=== PATIENT | female | born 1975 | race Caucasian/White ===

== ENCOUNTER 2020-02-16 12:28 | Inpatient (IN) | payer MEDICAID ==
[~2020-02-16] VITALS: Ht 172.7 cm; Wt 65.8 kg
--- NOTE | 2020-02-16 12:33 | NUR ---
MIKE [id number] From "Had procedure done yesterday woke up this am abdominal pain, chills/shakes/felt hot", to ER bed 9, hooked to monitor, changed to hosp gown, warm blanket provided, patient aao X 4, breathing even and unlabored. Patient states "I had hyssteroscopy yesterday to check my fallopian tubes, I was fine yesterday". awaiting MD collins.
--- NOTE | 2020-02-16 12:34 | NUR ---
Dr Valentin at [facility]
[2020-02-16] MEDS ORDERED: ONDANSETRON HCL/PF 4 MG/2 ML VIAL ONE ×2 (12:59→17:06)
[2020-02-16] MEDS ORDERED: METRONIDAZOLE 500MG/ NS 100ML 100 ML IV ONE ×2 (12:59→13:00)
[2020-02-16 13:00] LABS: BASOPHILS % (AUTO) 0.1 % (0.0-2.0); HEMATOCRIT 48 % (33-45); HEMOGLOBIN 15.4 g/dL (11.5-14.8); LYMPHOCYTES # (AUTO) 0.2 /CMM (0.8-4.8); LYMPHOCYTES % (AUTO) 1.2 % (20.0-44.0); MEAN CORPUSCULAR HGB CONC 32 g/dl (31.0-36.0); MEAN CORPUSCULAR VOLUME 95 fL (82-100); MONOCYTES # (AUTO) 0.9 /CMM (0.1-1.30); MONOCYTES % (AUTO) 5.1 % (2.0-12.0); NEUTROPHILS # (AUTO) 15.7 /CMM (1.8-8.9); NEUTROPHILS % (AUTO) 93.6 % (43.0-81.0); PLATELET COUNT (AUTO) 251 /CMM (150-450); RED BLOOD CELL COUNT(AUTO) 5.02 MIL/uL (4.0-5.2); WHITE BLOOD COUNT (AUTO) 16.7 K/uL (4.3-11.0)
[2020-02-16] MEDS ORDERED: MORPHINE SULFATE INJ 2 MG/ML DISP.SYRIN IV ONE ×2 (13:00→17:30)
[2020-02-16] MEDS ORDERED: PIPERACILLIN /TAZOBACTAM 3.375 G VIAL IV ONE (13:00)
[2020-02-16] MEDS ORDERED: MORPHINE SULFATE INJ 4 MG/ML DISP.SYRIN ONE ×2 (13:00→17:06)
[2020-02-16] MEDS ORDERED: ONDANSETRON HCL/PF 4 MG/2 ML VIAL IVP ONE (13:00)
[2020-02-16] MEDS ORDERED: IV NS 0.9% 1,000 ML BAG IV ONE (13:00)
[2020-02-16] MEDS ORDERED: PIPERACILLIN /TAZOBACTAM 3.375 G in IV D5W 50 ML IV ONE (13:00)
[2020-02-16 13:07] LABS: CALCIUM, SERUM 9.1 mg/dL (8.5-10.1); CARBON DIOXIDE 26 mmol/L (21-32); CHLORIDE 103 mmol/L (98-107); CREATININE 1.1 mg/dL (0.6-1.3); GLUCOSE 117 mg/dL (74-106); POTASSIUM 3.8 mmol/L (3.5-5.1); SODIUM SERUM 138 mmol/L (136-145); UREA NITROGEN, BLOOD 15 mg/dL (7-18)
[2020-02-16] MEDS ORDERED: IOHEXOL-300 100 ML VIAL IV ONE (13:17)
[2020-02-16] MEDS ORDERED: IV NS 0.9% 250 ML IV ONE (13:17)
[2020-02-16 13:19] LABS: ALANINE AMINOTRANSFERASE 24 U/L (12-78); ALBUMIN 3.6 g/dL (3.4-5.0); ALKALINE PHOSPHATASE 47 U/L (46-116); ASPARTATE AMINOTRANSFERASE 39 U/L (15-37); BILIRUBIN,DIRECT 0.3 mg/dL (0.0-0.2); BILIRUBIN,TOTAL 1.1 mg/dL (0.2-1.0); LIPASE 68 U/L (73-393); TOTAL PROTEIN, SERUM 6.9 g/dL (6.4-8.2)
--- NOTE | 2020-02-16 13:51 | NUR ---
patient not able to provide urine sample, made aware
--- NOTE | 2020-02-16 13:55 | NUR ---
PATIENT STATES "THERE IS 0% CHANCE I'M , THEY DID A TEST YESTERDAY AND IT'S NEGATIVE". LMP 02/05/2020
--- NOTE | 2020-02-16 13:56 | NUR ---
CALLED DR [facility]. ---ON THE PHONE WITH DR GTZ.
[2020-02-16] MEDS ORDERED: [UNRECOGNIZED DRUG - REMARK] PO (13:57)
--- NOTE | 2020-02-16 13:59 | NUR ---
CALLED DR JOHN HERNANDEZ. LEFT A VOICEMAIL.
--- NOTE | 2020-02-16 14:17 | NUR ---
DR BENTON CALLED BACK AND SPOKE WITH DR GTZ. REQUESTS PATIENT TO BE ACCEPTED AT [facility].
--- NOTE | 2020-02-16 14:23 | NUR ---
CALLED [facility] [place] LINE @ SPOKE WITH GERBER FAXED OVER FACESHEET AND CLINICALS @
--- NOTE | 2020-02-16 15:28 | NUR ---
URINE COLLECTED AND SENT TO LAB
[2020-02-16 16:05] LABS: APPEARANCE,URINE CLEAR (CLEAR); BILIRUBIN,URINE NEGATIVE (NEGATIVE); BLOOD, URINE NEGATIVE Ery/uL (NEGATIVE); COLOR,URINE YELLOW (YELLOW); KETONES,URINE NEGATIVE (NEGATIVE); LEUKOCYTE ESTERASE ,URINE NEGATIVE (NEGATIVE); NITRITE, URINE NEGATIVE (NEGATIVE); PROTEIN,URINE NEGATIVE (NEGATIVE); UGLUCOSE NEGATIVE (NEGATIVE); UROBILINOGEN,URINE 0.2 EU/dL (0.2)
--- NOTE | 2020-02-16 16:16 | NUR ---
GERBER FROM [facility] [place] LINE IS STATING PER DR LOPEZ.. PATIENT IS DOES NOT REQUIRE A DIRECT ADMISSION AND CAN BE SENT THROUGH THE EMERGENCY DEPARTMENT.
--- NOTE | 2020-02-16 16:30 | NUR ---
CALLED [facility] SPOKE WITH [employer]- KARYN AGUIAR- -[facility]ONT[facility] LINE WILL CALL US WITH AN UPDATE.
--- NOTE | 2020-02-16 16:50 | NUR ---
CALLED [employer] ATHLETIC EQUIPMENT MANAGER WAS PAGED.
[2020-02-16] MEDS ORDERED: ONDANSETRON HCL/PF 4 MG/2 ML VIAL IV ONE (17:30)
[2020-02-16] MEDS ORDERED: ACETAMINOPHEN 325 MG TABLET PO PRN (18:00)
[2020-02-16] MEDS ORDERED: MAGNESIUM HYDROXIDE 30 ML UDC PO PRN (18:00)
[2020-02-16] MEDS ORDERED: Z GUARD REMEDY 2 OZ OINT TP PRN (18:00)
[2020-02-16] MEDS ORDERED: ZOLPIDEM TARTRATE 5 MG TABLET PO PRN (18:00)
[2020-02-16] MEDS ORDERED: ONDANSETRON HCL/PF 4 MG/2 ML VIAL IVP PRN (18:00)
[2020-02-16] MEDS ORDERED: MAG HYDROX/AL HYDROX/SIMETH 30 ML UDC PO PRN (18:00)
--- NOTE | 2020-02-16 18:42 | NUR ---
REPORT GIVEN TO KIRSTEN ANDERSON OF [facility] UNIT
[2020-02-16 19:10] VITALS: BP 96/52
--- NOTE | 2020-02-16 19:10 | NUR ---
RN MS ADMISSION NOTES RECEIVED PATIENT FROM ER VIA GURNEY SAFELY TRANSFERRED TO BED, AWAKE ALERT AND ORIENTED X4, RESPIRATIONS EVEN AND UNLABORED WITH EQUAL RISE AND FALL OF CHEST, UPON ASSESSMENT NOTED ABDOMEN DISTENDED TENDER. OFFERED PAIN MEDICATION PT STATES " NOT AT THIS TIME" NO FACIAL GRIMACING PRESENT AT THIS TIME, IV SITE TO RIGHT AC#18G INTACT AND PATENT, NO REDNESS NO INFILTRATION PRESENT, PATIENT DENIES ANY SKIN ISSUES. BELONGINGS LIST DONE AND SIGNED BY PATIENT, WOULD LIKE TO KEEP PURSE AT BEDSIDE, ORIENTED TO STAFF AND CALL LIGHT AND KEPT WITHIN REACH, SAFETY PRECAUTIONS IN PLACE, LOW BED AND LOCKED, DISCUSSED PLAN OF CARE ALL NEEDS ATTENDED AT THIS TIME, WILL CONTINUE TO MONITOR.
[2020-02-16 20:00] VITALS: BP 96/52
[2020-02-16] MEDS: PIPERACILLIN /TAZOBACTAM 3.375 G in IV D5W 100 ML IV SCH (20:32)
[2020-02-16] MEDS: IV 1/2NS 1000 ML 1,000 ML IV PRN (20:34)
[2020-02-16] MEDS: MORPHINE SULFATE INJ 2 MG/ML DISP.SYRIN IV PRN (21:32)
--- NOTE | 2020-02-16 21:32 | NUR ---
rn ms notes patient complained of pain to abdomen area states 10/10, noted facial grimacing and moaning, states sharp achy pain, offered morphine patient agreed also offered zofran for nausea. given as ordered, will continue to monitor for effectiveness, vs wnl.
[2020-02-17] MEDS: MORPHINE SULFATE INJ 2 MG/ML DISP.SYRIN IV PRN ×2 (01:37→09:05)
--- NOTE | 2020-02-17 01:37 | NUR ---
rn ms notes patient complained of pain to abdomen area states 10/10, noted facial grimacing and crying, states sharp achy pain, offered morphine patient agreed ,given as ordered lights dimmed, will continue to monitor for effectiveness, vs wnl 117/83, hr 109, 02 sat 98% respirations 20, reassured patient her vital signs are within normal limits. will continue to monitor for effectiveness.
[2020-02-17] MEDS: PIPERACILLIN /TAZOBACTAM 3.375 G in IV D5W 100 ML IV SCH ×2 (03:58→12:12)
--- NOTE | 2020-02-17 06:24 | NUR ---
RN MS CLOSING NOTES PATIENT IN BED, AWAKE ALERT AND ORIENTED X4, RESPIRATIONS EVEN AND UNLABORED WITH EQUAL RISE AND FALL OF CHEST, PATIENT IS AMBULATORY WITH ASSIST BRP, ABLE TO VOID,ABDOMEN DISTENDED TENDER UPON MOVEMENT. OFFERED PAIN MEDICATION THROUGHOUT SHIFT AND EFFECTIVE. NO FACIAL GRIMACING PRESENT AT THIS TIME, IV SITE TO RIGHT AC#18G INTACT AND PATENT, NO REDNESS NO INFILTRATION PRESENT,IVF RUNNING ORDERED, ANTIBIOTICS GIVEN ORDERED. PATIENT DENIES ANY SKIN ISSUES. CALL LIGHT KEPT WITHIN REACH, SAFETY PRECAUTIONS IN PLACE, LOW BED AND LOCKED, ALL NEEDS ATTENDED AT THIS TIME, WILL CONTINUE TO MONITOR AND ENDORSE TO NEXT SHIFT.
[2020-02-17 06:59] LABS: BASOPHILS % (AUTO) 0.2 % (0.0-2.0); LYMPHOCYTES # (AUTO) 0.6 /CMM (0.8-4.8); MEAN CORPUSCULAR HGB CONC 32 g/dl (31.0-36.0); MONOCYTES # (AUTO) 0.6 /CMM (0.1-1.30)
[2020-02-17 07:11] LABS: EOSINOPHILS % (AUTO) 0.1 % (0.0-6.0); HEMATOCRIT 40 % (33-45); LYMPHOCYTES % (AUTO) 3.6 % (20.0-44.0); MEAN CORPUSCULAR VOLUME 95 fL (82-100); MONOCYTES % (AUTO) 3.5 % (2.0-12.0); NEUTROPHILS # (AUTO) 14.9 /CMM (1.8-8.9); NEUTROPHILS % (AUTO) 92.6 % (43.0-81.0); PLATELET COUNT (AUTO) 201 /CMM (150-450); RED BLOOD CELL COUNT(AUTO) 4.25 MIL/uL (4.0-5.2)
[2020-02-17 07:26] LABS: CALCIUM, SERUM 7.9 mg/dL (8.5-10.1); CREATININE 1.1 mg/dL (0.6-1.3); MAGNESIUM 2.1 mg/dL (1.8-2.4); PHOSPHORUS 2.4 mg/dL (2.5-4.9); POTASSIUM 3.5 mmol/L (3.5-5.1)
[2020-02-17 07:32] LABS: THYROID STIMULATING HORMONE 2.105 uIU/mL (0.358-3.74)
[2020-02-17] MEDS: PANTOPRAZOLE 40 MG TABLET.DR PO SCH (07:53)
[2020-02-17 08:00] VITALS: BP 95/52
--- NOTE | 2020-02-17 08:00 | NUR ---
MS RN NOTES PATIENT ALERT, ORIENTED X3 IN BED RESTING. NO SOB OR ACUTE DISTRESS NOTED. PERIPHERAL IV INTACT PATENT. SAFETY PRECAUTIONS IN PLACE WILL CONTINUE TO MONITOR.
--- NOTE | 2020-02-17 11:00 | NUR ---
MS RN NOTES PATIENT TRANSFERRED TO ROOM 207-2 IN STABLE CONDITION. BEDSIDE REPORT GIVEN TO MONICA.
--- NOTE | 2020-02-17 11:40 | NUR ---
MS RN NOTES RECEIVED REPORT FROM MONICA HOWARD. PATIENT IN STABLE CONDITION. ALERT AND ORIENTED X4. ON ROOM AIR WITH NO SIGNS OF RESPIRATORY DISTRESS AT THIS TIME. WILL CONTINUE TO MONITOR PATIENT.
--- NOTE | 2020-02-17 12:41 | NUR ---
[employer] M[employer] Filter Fabricator attempted to meet with this patient to go over the advanced care directive. Patient was not in the room when SW attempted to meet. SW will try again.
[2020-02-17] MEDS ORDERED: K PHOS NEUTRAL 250 MG TABLET PO ONE (13:00)
[2020-02-17] MEDS ORDERED: IBUPROFEN 400 MG TABLET PO PRN ×2 (16:00→16:30)
[2020-02-17] MEDS ORDERED: IBUPROFEN 600 MG TABLET PO PRN (16:00)
[2020-02-17] MEDS ORDERED: ONDANSETRON HCL/PF 4 MG/2 ML VIAL IV PRN (16:30)
[2020-02-17] MEDS: GENTAMICIN 450 MG in IV D5W 100 ML IV SCH (17:59)
[2020-02-17] MEDS ORDERED: ONDANSETRON HCL/PF 4 MG/2 ML VIAL IVP PRN (18:00)
[2020-02-17] MEDS ORDERED: CLINDAMYCIN 900 MG in IV NS 0.9% 50 ML IV SCH (18:00)
[2020-02-17] MEDS: CLINDAMYCIN 900 MG in IV NS 0.9% 50 ML IV SCH (19:27)
--- NOTE | 2020-02-17 19:32 | NUR ---
MS RN NOTES PATIENT IN BED RESTING COMFORTABLY. ALERT AND ORIENTED X4. PATIENT ON ROOM AIR WITH NO SIGNS OF SOB, RESPIRATORY DISTRESS, AND NO SOB NOTED. PATIENT IV ACCESS INTACT AND PATENT. MET ALL OF PATIENT'S NEEDS. PATIENT PRESENTS WITH MILD PAIN, APPLIED HEAT PACK TO ABDOMINAL AREA. PROVIDED COMFORT MEASURES TO PATIENT. SAFETY PRECAUTIONS IMPLEMENTED WITH BED LOCKED, BED IN THE LOWEST POSITION, BILATERAL SIDE RAILS UP AND CALL LIGHT WITHIN EASY REACH OF THE PATIENT. WILL ENDORSE PLAN OF CARE TO UPCOMING NURSE.
--- NOTE | 2020-02-17 19:50 | NUR ---
MS RN OPENING NOTES RECEIVED PATIENT RESTING IN BED COMFORTABLY; A/OX4; BREATHING EVEN AND UNLABORED; TOLERATING ROOM AIR WELL; NO SOB NOTED; R AC #18 SL INTACT AND PATENT, FLUSHING WELL; NO S/S OF REDNESS OR INFILTRATION NOTED; PATIENT ABLE TO MAKE NEEDS KNOWN; SAFETY PRECAUTIONS IMPLEMENTED; BED LOCKED IN LOW POSITION; SIDE RAILSX2; CALL LIGHT WITHIN EASY REACH; WILL CONT TO MONITOR
[2020-02-17 20:00] VITALS: BP 103/60
[2020-02-17] MEDS: AMPICILLIN 2 GM in IV NS 0.9% 100 ML IV SCH (20:28)
[2020-02-17 20:47] VITALS: BP 103/60
[2020-02-17] MEDS ORDERED: GENTAMICIN 80 MG in IV D5W 50 ML IV SCH (21:00)
[2020-02-17] MEDS: oxyCODONE/APAP (5/325 MG) 1 UDTAB TABLET PO PRN (21:21)
--- NOTE | 2020-02-17 21:21 | NUR ---
MS RN NOTES PATIENT COMPLAINING OF ABDOMINAL PAIN 03/15; PATIENT ALSO REPORTED SHE HAS BACK PAIN WELL; PATIENT REQUESTING PERCOCET; PATIENT VITALS STABLE, A/OX4, ABLE TO MAKE NEEDS KNOWN; WILL CONT TO MONITOR
[2020-02-18] MEDS: CLINDAMYCIN 900 MG in IV NS 0.9% 50 ML IV SCH ×3 (03:23→20:07)
--- NOTE | 2020-02-18 04:05 | NUR ---
MS RN NOTES PATIENT REQUESTING TO MOVE TO SEPARATE ROOM; PATIENT WOULD LIKE TO HAVE HER OWN ROOM SINCE HER CURRENT ROOMMATE IS LOUD/NOISY; PATIENT REPORTED SHE HAD DIFFICULTY GETTING SUFFICIENT REST D/T HER NOISY ROOMMATE; PATIENT MOVED TO BED 200; CALL LIGHT WITHIN REACH; WILL CONT TO MONITOR;
[2020-02-18] MEDS: AMPICILLIN 2 GM in IV NS 0.9% 100 ML IV SCH ×3 (04:18→21:04)
[2020-02-18] MEDS: IV 1/2NS 1000 ML 1,000 ML IV PRN (05:37)
--- NOTE | 2020-02-18 06:25 | NUR ---
MS RN CLOSING NOTES PATIENT RESTING IN BED COMFORTABLY; A/OX4; BREATHING EVEN AND UNLABORED; PATIENT TOLERATING ROOM AIR WELL; NO SOB NOTED; R AC # 18 INFUSING 1/2 NS @ 75ML/HR; PATIENT TOLERATING IVF WELL; NO S/S OF REDNESS OR INFILTRATION NOTED; PATIENT REPORTS TO BE FEELING MUCH BETTER, COMPARED TO YESTERDAY; PATIENT ABLE TO MAKE NEEDS KNOWN; ALL NEEDS RENDERED; SAFETY PRECAUTIONS IMPLEMENTED; BED LOCKED IN LOW POSITION; SIDE RAILSX2; CALL LIGHT WITHIN EASY REACH; WILL ENDORSE MICHAEL TO ONCOMING NURSE
[2020-02-18 06:54] LABS: BASOPHILS % (AUTO) 0.6 % (0.0-2.0); EOSINOPHILS % (AUTO) 2.3 % (0.0-6.0); HEMATOCRIT 41 % (33-45); HEMOGLOBIN 13.4 g/dL (11.5-14.8); LYMPHOCYTES # (AUTO) 1.1 /CMM (0.8-4.8); LYMPHOCYTES % (AUTO) 16.4 % (20.0-44.0); MEAN CORPUSCULAR HGB CONC 33 g/dl (31.0-36.0); MEAN CORPUSCULAR VOLUME 95 fL (82-100); MONOCYTES # (AUTO) 0.4 /CMM (0.1-1.30); MONOCYTES % (AUTO) 6.2 % (2.0-12.0); NEUTROPHILS % (AUTO) 74.5 % (43.0-81.0); PLATELET COUNT (AUTO) 193 /CMM (150-450); WHITE BLOOD COUNT (AUTO) 6.8 K/uL (4.3-11.0)
[2020-02-18 06:57] LABS: CALCIUM, SERUM 7.8 mg/dL (8.5-10.1); CREATININE 1.1 mg/dL (0.6-1.3); MAGNESIUM 1.9 mg/dL (1.8-2.4); PHOSPHORUS 3.1 mg/dL (2.5-4.9); POTASSIUM 3.5 mmol/L (3.5-5.1)
[2020-02-18] MEDS: PANTOPRAZOLE 40 MG TABLET.DR PO SCH (07:34)
[2020-02-18 08:00] VITALS: BP 98/59
--- NOTE | 2020-02-18 09:12 | NUR ---
MS/RN OPENING NOTES RECEIVED PATIENT IN BED SLEEPING EASILY AROUSE BY NAME AND SLIGHT TOUCH. NO COMPLAINED OF PAIN AT THIS TIME. NO APPARENT RESPIRATORY DISTRESS NOTED. WILL CONTINUE TO MONITOR
[2020-02-18] MEDS: HYDROCODONE/APAP 5/325MG 1 EACH TABLET PO PRN (12:21)
[2020-02-18 16:00] VITALS: BP 121/78
[2020-02-18] MEDS: GENTAMICIN 450 MG in IV D5W 100 ML IV SCH (18:26)
--- NOTE | 2020-02-18 18:51 | NUR ---
MS/RN NOTES DR. DEMARCO ORDER SOLU MEDROL 100 MG IV ONE TIME DOSE NOTED AND CARRIED OUT.
--- NOTE | 2020-02-18 18:52 | NUR ---
MS/RN CLOSING NOTES PATIENT IS ON BED. PATIENT IS ALERT AND ORIENTED X4. PATIENT DENIES PAIN AT THIS TIME. PATIENT IN NO APPARENT RESPIRATORY DISTRESS NOTED. IN ROOM AIR SATURATION AT 99%. IV ACCESS AT RIGHT AC # 18 WITH IV FLUID OF 1/2 NS 1L AT 75 ML/HR ON AND INFUSING WELL. SEEN AND EXAMINED BY MD WITH ORDERS MADE AND CARRIED OUT. ALL DUE MEDICATION WAS GIVEN. SAFETY PRECAUTION WAS IN PLACED. BED IN LOWEST POSITION AND LOCKED. SIDE RAILS UP X 2. CALL LIGHT WITHIN REACH. WILL ENDORSED TO GUIDE DOG INSTRUCTOR FOR MICHAEL.
--- NOTE | 2020-02-18 19:30 | NUR ---
PATIENT IN BED TALKING ON THE PHONE. A/ORX4. SMILING SPEECH CLEAR BED ALARM ON REVIEWED THE CALL LIGHT WITH THE PATIENT REMINDING HER TO CALL TO GET OUT OF THE BED FOR SAFETY.
[2020-02-18 19:58] VITALS: BP 108/73
[2020-02-18 20:11] VITALS: BP 108/73
[2020-02-18] MEDS ORDERED: methylPREDNISolone SOD SUCC 125 MG/2ML VIAL IV ONE (21:00)
[2020-02-18] MEDS: oxyCODONE/APAP (5/325 MG) 1 UDTAB TABLET PO PRN (22:59)
[2020-02-19] MEDS: IV 1/2NS 1000 ML 1,000 ML IV PRN (01:55)
[2020-02-19] MEDS: CLINDAMYCIN 900 MG in IV NS 0.9% 50 ML IV SCH ×2 (04:20→12:32)
--- NOTE | 2020-02-19 04:48 | NUR ---
uneventful night. slept 9 hours of this night. c/c/o 1 x of abd pain and medicated with percocet at 2300 and the medication was effective. md colindres was here to see pt at 1900 last night ordered solumederol ..given as ordered. ambu;ates to the bathroom with standby assist strong on her legs
[2020-02-19] MEDS: AMPICILLIN 2 GM in IV NS 0.9% 100 ML IV SCH ×2 (05:02→12:22)
[2020-02-19 06:37] LABS: BASOPHILS % (AUTO) 0.1 % (0.0-2.0); HEMATOCRIT 44 % (33-45); HEMOGLOBIN 14.4 g/dL (11.5-14.8); LYMPHOCYTES # (AUTO) 0.3 /CMM (0.8-4.8); LYMPHOCYTES % (AUTO) 9.1 % (20.0-44.0); MEAN CORPUSCULAR HGB CONC 33 g/dl (31.0-36.0); MEAN CORPUSCULAR VOLUME 95 fL (82-100); MONOCYTES # (AUTO) 0.1 /CMM (0.1-1.30); MONOCYTES % (AUTO) 2.4 % (2.0-12.0); NEUTROPHILS # (AUTO) 3.1 /CMM (1.8-8.9); NEUTROPHILS % (AUTO) 88.4 % (43.0-81.0); PLATELET COUNT (AUTO) 234 /CMM (150-450); RED BLOOD CELL COUNT(AUTO) 4.61 MIL/uL (4.0-5.2); WHITE BLOOD COUNT (AUTO) 3.5 K/uL (4.3-11.0)
[2020-02-19 07:21] LABS: CALCIUM, SERUM 8.5 mg/dL (8.5-10.1); MAGNESIUM 1.8 mg/dL (1.8-2.4); PHOSPHORUS 4.6 mg/dL (2.5-4.9)
[2020-02-19] MEDS: PANTOPRAZOLE 40 MG TABLET.DR PO SCH (08:05)
--- NOTE | 2020-02-19 08:09 | NUR ---
MS/RN OPENING NOTES RECEIVED PATIENT ON BED AWAKE, ALERT AND ORIENTED X4. PATIENT IN NO RESPIRATORY RESPIRATORY DISTRESS NOTED. PATIENT NO COMPLAINED OF PAIN AT THIS TIME. WILL CONTINUE TO MONITOR.
[2020-02-19 08:34] VITALS: BP 110/71
[2020-02-19 09:26] LABS: BAND % (MANUAL) 3 % (0.0-5.0); LYMPHOCYTES % (MANUAL) 13 % (16-48); NEUTROPHILS % (MANUAL) 84 (42-76)
[2020-02-19] MEDS: HYDROCODONE/APAP 5/325MG 1 EACH TABLET PO PRN ×2 (12:21→16:07)
--- NOTE | 2020-02-19 19:32 | NUR ---
MS/RN NOTES PATIENT IS ALERT AND ORIENTED X4. PATIENT DENIES PAIN AT THIS TIME. IN ROOM AIR AND SATURATION IS AT 100%. RESPIRATION REGULAR AND UNLABORED. THE PATIENT IN NO APPARENT RESPIRATORY DISTRESS NOTED. SEEN AND EXAMINED BY MD WITH ORDERS MADE AND CARRIED OUT. PATIENT DISCHARGE AT 1635. PATIENT WAS GIVEN DISCHARGED INSTRUCTIONS AND PATIENT VERBALIZED UNDERSTANDING. THE PATIENT LEFT THE HOSPITAL IN STABLE CONDITION, ACCOMPANIED BY ULKIRA HOUSEMATE FRIEND, VIA PRIVATE CAR.
== END 2020-02-19 16:36 | disposition home or self-care (01) | DRG 720 ==
LOC: ER 12:31 → MED 18:48 → MEDSG2 02-17 11:25 → MED 02-19 05:48
PROVIDERS: ADMIT Student in an Organized Health Care Education/Training Program; ATTEND Student in an Organized Health Care Education/Training Program
DX: A41.9 Sepsis, unspecified organism (principal); K65.9 Peritonitis, unspecified; Z98.890 Other specified postprocedural states; Z98.1 Arthrodesis status
CPT/HCPCS: 36415; 71045-TC; 80048-TC; 80061-TC; 80076-TC; 80170-TC; 81000-TC; 83605-TC; 83690-TC; 83735-TC; 84100-TC; 84443-TC; 84484-TC; 84703-TC; 85025-TC; 85730-TC; 87040-TC; 87081-TC; 97116-TC; 97530-TC; A4216; C9803-CS; G0378; J0290; J1580; J2270; J2405; J2543; J2930; J3490; J7030; J7050; J7060; Q9967

== ENCOUNTER 2020-05-09 15:53 | Emergency (ER) | payer MEDICAID, OTHER ==
[~2020-05-09] VITALS: Ht 172.7 cm; Wt 68.0 kg
[~2020-05-09 15:53] MED LIST: [UNRECOGNIZED DRUG - REMARK] PO
[2020-05-09] MEDS ORDERED: CEFTRIAXONE 1GM BAG (ER ONLY) 50 ML IV ONE (16:25)
[2020-05-09] MEDS ORDERED: ONDANSETRON HCL/PF 4 MG/2 ML VIAL ONE (16:26)
[2020-05-09] MEDS ORDERED: KETOROLAC TROMETHAMINE 15 MG/ML VIAL ONE (16:26)
[2020-05-09] MEDS ORDERED: IV NS 0.9% 1,000 ML BAG IV ONE (16:30)
[2020-05-09] MEDS ORDERED: ONDANSETRON HCL/PF 4 MG/2 ML VIAL IVP ONE (16:30)
[2020-05-09] MEDS ORDERED: KETOROLAC TROMETHAMINE INJ 30 MG/ML VIAL IV ONE (16:30)
[2020-05-09] MEDS ORDERED: CEFTRIAXONE 1GM BAG (ER ONLY) 1 GM/50 ML PIGGYBACK IV ONE (16:30)
[2020-05-09 16:39] LABS: BASOPHILS # (AUTO) 0.1 /CMM (0.0-0.2); BASOPHILS % (AUTO) 0.6 % (0.0-2.0); EOSINOPHILS % (AUTO) 0.1 % (0.0-6.0); HEMATOCRIT 43 % (33-45); HEMOGLOBIN 14.2 g/dL (11.5-14.8); LYMPHOCYTES # (AUTO) 0.6 /CMM (0.8-4.8); LYMPHOCYTES % (AUTO) 5.8 % (20.0-44.0); MEAN CORPUSCULAR HGB CONC 33 g/dl (31.0-36.0); MEAN CORPUSCULAR VOLUME 93 fL (82-100); MONOCYTES # (AUTO) 1.2 /CMM (0.1-1.30); MONOCYTES % (AUTO) 10.9 % (2.0-12.0); NEUTROPHILS # (AUTO) 9.2 /CMM (1.8-8.9); NEUTROPHILS % (AUTO) 82.6 % (43.0-81.0); PLATELET COUNT (AUTO) 261 /CMM (150-450); RED BLOOD CELL COUNT(AUTO) 4.64 MIL/uL (4.0-5.2); WHITE BLOOD COUNT (AUTO) 11.1 K/uL (4.3-11.0)
[2020-05-09 16:48] LABS: CALCIUM, SERUM 8.8 mg/dL (8.5-10.1); CREATININE 1.1 mg/dL (0.6-1.3); POTASSIUM 3.2 mmol/L (3.5-5.1)
--- NOTE | 2020-05-09 16:50 | NUR ---
fever, abdominal pain w/ nausea vomiting since started taking bactrim for uti last . PT AAOX4, VSS. RR EVEN & UNLABORED. DENIES CP, SOB, DIZZINESS AT THIS TIME. PT SEEN & EVAL'D BY DR. LOCKHART. MEDICATED ORDERED, PT DEMARCUS WELL. WILL CONT TO MONITOR.
[2020-05-09 16:54] LABS: ALBUMIN 2.6 g/dL (3.4-5.0); BILIRUBIN,DIRECT 0.1 mg/dL (0.0-0.2); BILIRUBIN,TOTAL 0.2 mg/dL (0.2-1.0); TOTAL PROTEIN, SERUM 7.3 g/dL (6.4-8.2)
[2020-05-09 17:31] LABS: BILIRUBIN,URINE SMALL (NEGATIVE); BLOOD, URINE Large Ery/uL (NEGATIVE); COLOR,URINE Yellow (YELLOW); LEUKOCYTE ESTERASE ,URINE Trace (NEGATIVE); NITRITE, URINE Negative (NEGATIVE); PROTEIN,URINE 100 mg/dl (NEGATIVE); UGLUCOSE Negative (NEGATIVE); UROBILINOGEN,URINE 0.2 EU/dL (0.2)
[2020-05-09] MEDS ORDERED: oxyCODONE/APAP (5/325 MG) 1 UDTAB TABLET PO ONE (18:00)
[2020-05-09 18:03] LABS: BACTERIA,URINE Few /HPF (None Seen); RBC,URINE 21-50 /HPF (0-2); SQUAMOUS EPITHELIAL CELL,UR Few /HPF (None Seen)
[2020-05-09] MEDS ORDERED: oxyCODONE/APAP (5/325 MG) 1 UDTAB TABLET ONE (18:23)
[2020-05-09] MEDS ORDERED: KETOROLAC TROMETHAMINE INJ 30 MG/ML VIAL ONE (18:23)
--- NOTE | 2020-05-09 20:04 | NUR ---
PT AWARE OF NEGATIVE COVID TEST
--- NOTE | 2020-05-09 20:05 | NUR ---
Patient discharged to home in stable condition. Written and verbal after care instructions given. Patient verbalizes understanding of instruction. IV removed. Catheter intact and site benign. Pressure and 4x4 applied to site. No bleeding noted.
[2020-05-09 20:06] VITALS: BP 118/67
== END 2020-05-09 20:07 | disposition home or self-care (01) ==
LOC: ER 15:56
DX: N39.0 Urinary tract infection, site not specified (principal); R00.0 Tachycardia, unspecified; R51.9 Headache, unspecified; Z20.828 Contact with and (suspected) exposure to other viral communicable diseases
CPT/HCPCS: 36415; 74176; 80048; 80076; 81001; 83690; 84703; 85025; 85730; 87086; 87426; 96361; 96365; 96375; 99284; C9803; J0696; J1885; J2405; J7030 ×2; 81000-TC